=== PATIENT | male | born 1995 | race African-American/Black ===

== ENCOUNTER 2017-05-15 12:37 | Emergency (ER) | payer MEDICAID ==
[~2017-05-15] VITALS: Ht 167.6 cm; Wt 75.0 kg
[~2017-05-15 12:37] MED LIST: DIVAL250 PO
[2017-05-15 13:35] VITALS: BP 150/87
== END 2017-05-15 18:00 | disposition left against medical advice (07) ==
LOC: ER 17:59
DX: J02.9 Acute pharyngitis, unspecified (principal); R68.83 Chills (without fever); R04.0 Epistaxis; Z53.21 Procedure and treatment not carried out due to patient leaving prior to being seen by health care provider

== ENCOUNTER 2019-09-20 21:10 | Emergency (ER) | payer MEDICAID ==
[~2019-09-20] VITALS: Ht 175.3 cm; Wt 68.0 kg
[2019-09-20] MEDS ORDERED: SODIUM CHLORIDE 0.9% 1,000 ML IV ONE (22:02)
[2019-09-20] MEDS ORDERED: LEVETIRACETAM 1000MG/100ML 100 ML IV ONE (22:15)
[2019-09-20 23:06] LABS: BASOPHILS % 0.7 % (0.0-2.0); EOSINOPHILS % 0.5 % (0.0-5.0); HEMATOCRIT. 43.5 % (42.0-52.0); HEMOGLOBIN. 14.4 g/dL (14.0-18.0); LYMPHOCYTES % 40.2 % (20.0-50.0); MEAN CORPUSCULAR HEMOGLOBIN 27.3 pg (28.0-32.0); MEAN CORPUSCULAR VOLUME 82.5 fL (80.0-94.0); MEAN PLATELET VOLUME 8.3 fl (7.4-10.4); MONOCYTES % 7.7 % (2.0-8.0); NEUTROPHILS % 50.9 % (40.0-76.0); PLATELET 156 x1000/uL (130-400); RED BLOOD CELL COUNT 5.27 mill/uL (4.7-6.1); RED CELL DISTRIBUTION WIDTH 13.7 % (11.6-14.6)
[2019-09-20 23:10] LABS: CHLORIDE 108 mEq/L (98-107)
[2019-09-20 23:17] LABS: ETHANOL BLOOD < 10 mg/dL
[2019-09-20 23:22] LABS: VALPROIC ACID < 3.0 ug/mL (50-100)
[2019-09-21 03:30] VITALS: BP 118/72
== END 2019-09-21 05:15 | disposition home or self-care (01) ==
LOC: ER 21:10
DX: G40.909 Epilepsy, unspecified, not intractable, without status epilepticus (principal); E11.9 Type 2 diabetes mellitus without complications; Z91.14 Patient's other noncompliance with medication regimen
CPT/HCPCS: 36415; 80053; 80165; 80320; 85025; 96365; 99283; J1953; J7030; Z7610; G0480

== ENCOUNTER 2019-10-09 03:28 | Emergency (ER) | payer MEDICAID ==
[~2019-10-09] VITALS: Ht 170.2 cm; Wt 70.0 kg
[2019-10-09] MEDS ORDERED: SODIUM CHLORIDE 0.9% 1,000 ML IV ONE (03:49)
[2019-10-09 04:04] LABS: CLARITY URINE CLOUDY (CLEAR); COLOR URINE YELLOW (YELLOW); KETONES URINE NEGATIVE (NEGATIVE); LEUKOCYTE ESTERASE URINE TRACE (NEGATIVE); NITRITE URINE NEGATIVE (NEGATIVE); OCCULT BLOOD URINE NEGATIVE (NEGATIVE); PH URINE 5.5 (4.5-8.0); PROTEIN URINE 2+ (NEGATIVE); SPECIFIC GRAVITY URINE 1.025 (1.005-1.030)
[2019-10-09 04:04] LABS: BASOPHILS % 0.6 % (0.0-2.0); EOSINOPHILS % 1.3 % (0.0-5.0); HEMATOCRIT. 47.6 % (42.0-52.0); HEMOGLOBIN. 15.7 g/dL (14.0-18.0); LYMPHOCYTES % 34.3 % (20.0-50.0); MEAN CORPUSCULAR HEMOGLOBIN 26.9 pg (28.0-32.0); MEAN CORPUSCULAR VOLUME 81.2 fL (80.0-94.0); MEAN PLATELET VOLUME 7.9 fl (7.4-10.4); NEUTROPHILS % 54.8 % (40.0-76.0); PLATELET 238 x1000/uL (130-400); RED BLOOD CELL COUNT 5.86 mill/uL (4.7-6.1); RED CELL DISTRIBUTION WIDTH 12.9 % (11.6-14.6)
[2019-10-09 04:30] LABS: CHLORIDE 108 mEq/L (98-107)
[2019-10-09 04:34] LABS: ETHANOL BLOOD < 10 mg/dL
[2019-10-09 04:37] LABS: *AMPHETAMINES SCREEN URINE NEGATIVE (NEGATIVE); *BARBITURATES SCREEN URINE NEGATIVE (NEGATIVE); *BENZODIAZEPINES SCREEN URINE NEGATIVE (NEGATIVE); *COCAINE SCREEN URINE NEGATIVE (NEGATIVE); METHADONE URINE SCREEN NEGATIVE (NEGATIVE); OPIATES URINE SCREEN NEGATIVE (NEGATIVE)
[2019-10-09 04:38] LABS: CANNABINOID URINE SCREEN PRESUMTIVE POSITIVE (NEGATIVE); PHENCYCLIDINE URINE SCREEN NEGATIVE (NEGATIVE)
[2019-10-09 14:20] VITALS: BP 125/75
== END 2019-10-09 14:21 | disposition home or self-care (01) ==
LOC: ER 04:07
DX: R45.851 Suicidal ideations (principal); F12.10 Cannabis abuse, uncomplicated; E11.9 Type 2 diabetes mellitus without complications; Z88.0 Allergy status to penicillin
CPT/HCPCS: 36415; 71045; 80053; 80305; 80307; 80320; 80329; 81003; 85025; 93005; 99284; J7030; Z7610; G0480

== ENCOUNTER 2020-03-14 15:05 | Emergency (ER) | payer MEDICAID ==
[~2020-03-14] VITALS: Ht 172.7 cm; Wt 75.0 kg
[2020-03-14 15:14] VITALS: BP 110/63
[2020-03-14] MEDS ORDERED: BACITRACIN ZINC OINT UDPKT TOP ONE (16:00)
== END 2020-03-14 15:55 | disposition home or self-care (01) ==
LOC: ER 15:05
DX: Z48.02 Encounter for removal of sutures (principal)
CPT/HCPCS: 99281

== ENCOUNTER 2021-08-28 17:19 | Emergency (ER) | payer MEDICAID ==
[~2021-08-28] VITALS: Ht 175.3 cm; Wt 66.0 kg
[2021-08-28 17:25] VITALS: BP 154/70
[2021-08-28] MEDS ORDERED: MAGNESIUM/ALUMINUM HYDROXIDE/SIMETHICONE 30ML UDC PO STA (17:47)
[2021-08-28] MEDS ORDERED: VISCOUS LIDOCAINE 2% 15 ML UDC PO STA (17:47)
[2021-08-28] MEDS ORDERED: DICYCLOMINE 10 MG/5 ML ORAL SYR PO STA (17:47)
[2021-08-28 18:10] LABS: HEMATOCRIT. 44.6 % (42.0-52.0); HEMOGLOBIN. 14.5 g/dL (14.0-18.0); MEAN CORPUSCULAR HEMOGLOBIN 26.7 pg (28.0-32.0); MEAN CORPUSCULAR VOLUME 82.4 fL (80.0-94.0); MEAN PLATELET VOLUME 8.1 fl (7.4-10.4); PLATELET 197 x1000/uL (130-400); RED BLOOD CELL COUNT 5.41 mill/uL (4.7-6.1)
[2021-08-28 18:17] LABS: CHLORIDE 104 mEq/L (98-107)
[2021-08-28 18:20] LABS: ETHANOL BLOOD < 10 mg/dL
[2021-08-28 18:29] LABS: PLATELET ESTIMATE NORMAL
== END 2021-08-28 19:51 | disposition home or self-care (01) ==
LOC: ER 17:19
DX: R11.2 Nausea with vomiting, unspecified (principal); E11.9 Type 2 diabetes mellitus without complications; R56.9 Unspecified convulsions; Z88.0 Allergy status to penicillin
CPT/HCPCS: 36415; 71045; 80053; 83690; 84484; 85025; 99284; G0480; 80320

== ENCOUNTER 2021-09-22 04:42 | Emergency (ER) | payer MEDICAID ==
[~2021-09-22] VITALS: Ht 170.2 cm; Wt 60.0 kg
[2021-09-22 04:45] VITALS: BP 144/93
[2021-09-22] MEDS ORDERED: ONDANSETRON HCL 4MG/2ML INJ IV STA (05:04)
[2021-09-22] MEDS ORDERED: SODIUM CHLORIDE 0.9% 1,000 ML IV ONE (05:15)
== END 2021-09-22 04:55 | disposition left against medical advice (07) ==
LOC: ER 04:42
DX: R56.9 Unspecified convulsions (principal)
CPT/HCPCS: 99283; J7030

== ENCOUNTER 2021-09-22 05:40 | Emergency (ER) | payer MEDICAID ==
[~2021-09-22] VITALS: Ht 170.2 cm; Wt 60.0 kg
[2021-09-22] MEDS ORDERED: HALOPERIDOL LACTATE 5MG/ML VIAL IM STA (05:57)
[2021-09-22] MEDS ORDERED: DIPHENHYDRAMINE 50MG/ML VIAL IM STA (05:57)
[2021-09-22] MEDS ORDERED: SODIUM CHLORIDE 0.9% 1,000 ML IV ONE (06:00)
[2021-09-22] MEDS ORDERED: LORAZEPAM 2MG/ML CPJ IM ONE (06:00)
[2021-09-22 06:34] LABS: BASOPHILS % 0.4 % (0.0-2.0); EOSINOPHILS % 0.7 % (0.0-5.0); HEMATOCRIT. 48.5 % (42.0-52.0); HEMOGLOBIN. 15.5 g/dL (14.0-18.0); LYMPHOCYTES % 57.6 % (20.0-50.0); MEAN CORPUSCULAR HEMOGLOBIN 26.4 pg (28.0-32.0); MEAN CORPUSCULAR VOLUME 82.8 fL (80.0-94.0); MEAN PLATELET VOLUME 8.2 fl (7.4-10.4); MONOCYTES % 7.3 % (2.0-8.0); PLATELET 213 x1000/uL (130-400); RED BLOOD CELL COUNT 5.86 mill/uL (4.7-6.1); RED CELL DISTRIBUTION WIDTH 13.9 % (11.6-14.6)
[2021-09-22 06:43] LABS: CHLORIDE 111 mEq/L (98-107)
[2021-09-22 06:47] LABS: ETHANOL BLOOD 55 mg/dL
[2021-09-22 07:28] LABS: CLARITY URINE CLEAR (CLEAR); COLOR URINE YELLOW (YELLOW); KETONES URINE NEGATIVE (NEGATIVE); LEUKOCYTE ESTERASE URINE 2+ (NEGATIVE); NITRITE URINE NEGATIVE (NEGATIVE); OCCULT BLOOD URINE NEGATIVE (NEGATIVE); PROTEIN URINE TRACE (NEGATIVE); SPECIFIC GRAVITY URINE 1.015 (1.005-1.030)
[2021-09-22 07:40] LABS: *BENZODIAZEPINES SCREEN URINE PRESUMTIVE POSITIVE (NEGATIVE); *COCAINE SCREEN URINE NEGATIVE (NEGATIVE); METHADONE URINE SCREEN NEGATIVE (NEGATIVE); OPIATES URINE SCREEN NEGATIVE (NEGATIVE)
[2021-09-22 07:41] LABS: *AMPHETAMINES SCREEN URINE NEGATIVE (NEGATIVE); *BARBITURATES SCREEN URINE NEGATIVE (NEGATIVE); CANNABINOID URINE SCREEN PRESUMTIVE POSITIVE (NEGATIVE); PHENCYCLIDINE URINE SCREEN NEGATIVE (NEGATIVE)
[2021-09-22] MEDS ORDERED: ARIPIPRAZOLE 5MG TABLET PO SCH (10:00)
[2021-09-22] MEDS ORDERED: LORAZEPAM 2MG/ML CPJ IV PRN (10:00)
[2021-09-22] MEDS ORDERED: HALOPERIDOL LACTATE 5MG/ML VIAL IM PRN (10:00)
[2021-09-22] MEDS ORDERED: SULFAMETHOXAZOLE/TRIMETHOPRIM 800/160MG TABLET PO SCH (12:00)
[2021-09-22 14:39] VITALS: BP 128/78
[2021-09-22 14:49] LABS: CHLORIDE 113 mEq/L (98-107)
== END 2021-09-22 16:02 | disposition left against medical advice (07) ==
LOC: ER 05:40
DX: R45.851 Suicidal ideations (principal); F19.10 Other psychoactive substance abuse, uncomplicated; N39.0 Urinary tract infection, site not specified; F12.10 Cannabis abuse, uncomplicated; Z88.0 Allergy status to penicillin; Z20.822 Contact with and (suspected) exposure to COVID-19
CPT/HCPCS: 36415; 80053; 80305; 80307; 80320; 80329; 81003; 85025; 87086; 96360; 96361; 96372; 99285; C9803; J1200; J1630; J2060; J7030; U0003; U0005; G0480